=== PATIENT | female | born 1935 | race Caucasian/White ===

== ENCOUNTER 2021-03-21 00:35 | Emergency (ER) | payer MEDICARE ==
[~2021-03-21] VITALS: Ht 177.8 cm; Wt 74.8 kg
[~2021-03-21 00:35] MED LIST: ARICEPT10 M1 PO; BACTRIM 400 MG-1 TAB PO; CIPRO250 MG PO; CIPRO500 MG PO; D-1000 185 MG-11 TAB PO; DARVOCET N 1001 TAB PO; DAYPRO600 M1 PO; IBU-4400 MG PO; K-PHOS500 MG PO; LISINOPRIL5 MG PO; Lovenox40 MG/0.4 SC; MAPAP325 MG PO; PERCOCET 325 MG1 TA2 PO; Percocet 325 MG1 TAB PO; VITAMIN D31000 IU PO; ZYVOX600 MG PO
[2021-03-21 00:38] VITALS: BP 135/87
== END 2021-03-21 05:14 ==
LOC: ED 00:35
DX: S30.0XXA Contusion of lower back and pelvis, initial encounter (principal); Z88.8 Allergy status to other drugs, medicaments and biological substances; W18.39XA Other fall on same level, initial encounter; Y93.89 Activity, other specified; Y92.89 Other specified places as the place of occurrence of the external cause; Y99.8 Other external cause status